=== PATIENT | male | born 1970 | race Caucasian/White ===

== ENCOUNTER 2017-01-28 10:25 | Emergency (ER) | payer OTHER ==
[2017-01-28 10:46] VITALS: BP 146/92
--- NOTE | 2017-01-28 11:48 | ED ---
Throat Pain/Nasal Congestion - HPI Summary HPI Summary: Patient is a 46yo who presents to the ED with sore throat x 4 days. He notes to feeling like a burning and aching in his posterior pharmacy with associated left sided neck swelling also with pain. He denies sick contacts or travel. Patient is a heavy smoker. He also uses an inhaler daily for which he states he has not followed up consistently with washing out his mouth after using the inhaler. He is concerned over thrush, however he has used his at home nystatin recently without relief of his symptoms. Denies recent fatigue. Never dx with strep or mono in the past. Hx of GERD. States this feels different. Denies chest pain. He endorses SOB at baseline d/t COPD. Denies other symptoms including fevers, sweats or chills. He endorses odynophagia, but denies dysphagia. Taking PO well. Denies muffled voice, drooping and not worse with recumbent positioning. Immunizations are UTD. - History of Current Complaint Chief Complaint: EDThroatPain Time Seen by Provider: 01/28/17 10:35 Hx Obtained From: Patient Onset/Duration: Sudden Onset Severity: Moderate PMH/Surg Hx/FS Hx/Imm Hx Previously Healthy: Yes - Immunization History Hx Pertussis Vaccination: No Immunizations Up to Date: Unable to Obtain/Confirm Infectious Disease History: No Infectious Disease History: Denies: Traveled Outside the [place] in Last 30 Days - Social History Occupation: Employed Full-time Lives: With Family Alcohol Use: Daily Alcohol Amount: approximately 12 beers daily Hx Substance Use: No Substance Use Type: Reports: None Substance Use Comment - Amount & Last Used: Pt taking Suboxone Hx Tobacco Use: Yes Smoking Status (MU): Heavy Every Day Tobacco Smoker Do You Chew or Dip Tobacco: No Have You Chewed or Dipped Tobacco in the LAST YEAR: No Have You Smoked in the Last Year: No Review of Systems Constitutional: Negative Eyes: Negative Positive: Sore Throat, Other - left sided swollen LN Cardiovascular: Negative Genitourinary: Negative Positive: no symptoms reported, see HPI Musculoskeletal: Negative Neurological: Negative Psychological: Normal All Other Systems Reviewed And Are Negative: Yes Physical Exam Triage Information Reviewed: Yes Vital Signs On Initial Exam: Initial Vitals Temp Pulse Resp BP Pulse Ox 98.1 F 96 22 131/99 94 01/28/17 10:30 01/28/17 10:30 01/28/17 10:30 01/28/17 10:30 01/28/17 10:30 Vital Signs Reviewed: Yes Appearance: Positive: Well-Appearing, Well-Nourished Skin: Positive: Warm, Skin Color Reflects Adequate Perfusion Head/Face: Positive: Normal Head/Face Inspection, Other - tenderness over left LN Eyes: Positive: EOMI, RICH ENT: Positive: Pharyngeal erythema, TMs normal, Tonsillar swelling, Tonsillar exudate Neck: Positive: Supple, Tenderness @ - left anterior cervical and supraclavicular nodes Respiratory/Lung Sounds: Positive: Clear to Auscultation, Breath Sounds Present Cardiovascular: Positive: Normal, RRR, Pulses are Symmetrical in both Upper and Lower Extremities Musculoskeletal: Positive: Normal, Strength/ROM Intact Neurological: Positive: Sensory/Motor Intact, Alert, Oriented to Person Place, Time, Speech Normal Psychiatric: Positive: Normal - Rashad Coma Scale Coma Scale Total: 15 Diagnostics - Vital Signs Vital Signs Temp Pulse Resp BP Pulse Ox 01/28/17 10:36 97.9 F 87 18 146/92 93 01/28/17 10:30 98.1 F 96 22 131/99 94 - Laboratory Lab Results: Lab Results 01/28/17 Range/Units 10:48 Group A Strep Rapid Negative (Negative) Lab Statement: Any lab studies that have been ordered have been reviewed, and results considered in the medical decision making process. EENT Course/Dx - Course Course Of Treatment: Denies other symptoms including fevers, sweats or chills. He endorses odynophagia, but denies dysphagia. Taking PO well. Considered epiglottitis, viral pharyngitis, mono, thrush complications from inhaler and smoking usage, mouth/throat CA d/t heavy smoking usage, and peritonsillar abscess. Patient has not been fatigued, onset was sudden and patient denies muffled voice, drooping and not worse with recumbent positioning. Immunizations are UTD. Strep negative. D/t findings, provider suggested magic mouth was for cleansing and pain control purposes, continuing nystatin and taking a short course steroid x 5 days to decreased the inflammation. It is explained to patient that just d./t strep and findings, will treat for a likely viral pharyngitis/tonsillitis. This is the first step to to try to allevaite the symptoms. However, he is encouraged to return for any difficulty swallowing , feeling like food is stuck or fevers. He is given a referral to Dr. Jacobs's office if symptoms persist or worsen as well. Patient agrees to try these measures as a first step. Medications were reveiwed with patient. Patient understands and agrees with plan. Ok for discharge. - Differential Diagnoses Differential Diagnoses: Peritonsillar Ulcer, Pharyngitis, Tonsilitis - Diagnoses Provider Diagnoses: Pharyngitis, Tonsillitis with exudate Discharge - Discharge Plan Condition: Stable Disposition: HOME Prescriptions: predniSONE TAB* [Deltasone TAB*] 50 mg PO DAILY #5 tab MDD 1 Patient Education Materials: Pharyngitis (ED) Referrals: Nestor Jacobs MD [Medical Doctor] - Non Staff,Doctor [Primary Care Provider] - Additional Instructions: Your strep test was negative. As discussed your LN over the left side area swollen, likely in response to a viral pharyngitis To help with the pain and inflammation, I have given you 2 medications. Magic mouth wash: swish and swallow 4 x daily Prednisone daily in the MORNING for 5 days DO NOT SMOKE! This will worsen any throat discomfort Continue with your at home nystatin on opposite schedule Tylenol 650mg three times daily for any discomfort Wash your mouth well after using your inhaler. If you develop worsening symptoms, return to the ED - or follow up with ENT. Images - Images Dental: 1 - enlarged tonsil/LN with white exudate 2 - white patches throughout which can be scraped off - resembling thrush ( patient has a history)
== END 2017-01-28 11:29 | disposition home or self-care (01) ==
LOC: ED 10:25
DX: J03.90 Acute tonsillitis, unspecified (principal); J02.9 Acute pharyngitis, unspecified; F17.210 Nicotine dependence, cigarettes, uncomplicated
CPT/HCPCS: 87651; 99282